=== PATIENT | male | born 1985 | race Caucasian/White ===

== ENCOUNTER 2020-01-09 05:52 | Emergency (ER) | payer SELFPAY ==
[~2020-01-09] VITALS: Ht 180 cm; Wt 104.0 kg
[2020-01-09 06:34] VITALS: BP 130/92
[2020-01-09] MEDS ORDERED: RT-ALBUINH IH ×2 (06:37→06:56)
--- NOTE | 2020-01-09 06:37 | ED Cough/URI ---
General Chief Complaint: Cough/Cold/Flu Symptoms Stated Complaint: COUGH/SOB Nursing Triage Note: Pt presents with a cough that has progressed over the past week. Pt denies any fever at home Sepsis Screen: No Definite Risk Source: patient Exam Limitations: no limitations History of Present Illness Date Seen by Provider: Jan 09, 2020 Time Seen by Provider: 06:00 Initial Comments Presents with 5 days of nasal congestion and cough. Denies fever or chills. NO significant PMHx, denies asthma or smoking. No concern of Covid exposure or recent travel. Developing some soa w cough and noticed some wheezing the past couple days. Has had similar sx in the past w seasonal allergies and bronchitis. No sick contacts at home. No sick contacts at work. Allergies and Home Medications Allergies Coded Allergies: No Known Drug Allergies (Unverified , 01/09/20) Home Medications Albuterol Sulfate 1 Puff Puff, 2 PUFF IH Q4H 1 PUFF = 90 MCG Prescribed by: BONI FLORES on 01/09/20 0637 Patient Home Medication List Home Medication List Reviewed: Yes Review of Systems Review of Systems Constitutional: see HPI; No chills, No diaphoresis, No dizziness, No fever, No malaise, No weakness EENTM: see HPI, nose congestion; No throat pain, No throat swelling Respiratory: see HPI, cough; No dyspnea on exertion, No hemoptysis, No orthopnea, No phlegm; short of breath; No stridor; wheezing Cardiovascular: No chest pain, No palpitations Gastrointestinal: No abdominal pain, No loss of appetite, No vomiting Musculoskeletal: No back pain, No joint pain, No muscle pain Skin: No change in color, No rash Past Qwrcsji-Kgjixy-Ihkbrd Hx Past Med/Social Hx: Reviewed Nursing Past Med/Soc Hx Patient Social History Alcohol Use: Denies Use Recreational Drug Use: No Smoking Status: Never a Smoker 2nd Hand Smoke Exposure: No Recent Foreign Travel: No Contact w/Someone Who Travel: No Recent Infectious Disease Expo: No Recent Hopitalizations: No Physical Abuse: No Sexual Abuse: No Past Medical History Surgeries: Yes Appendectomy Respiratory: No Cardiac: No Neurological: No Genitourinary: No Gastrointestinal: No Musculoskeletal: No Endocrine: No HEENT: No Cancer: No Psychosocial: No Integumentary: No Blood Disorders: No Physical Exam Vital Signs - First Documented 01/09/20 05:52 Temp 37.3 Pulse 90 Resp 18 B/P (MAP) 148/92 (110) Pulse Ox 100 O2 Delivery Room Air Capillary Refill : Less Than 3 Seconds Height: '" Weight: lbs. oz. kg; 32.00 BMI Method: General Appearance: WD/WN, no apparent distress HEENT: normal ENT inspection Neck: non-tender, supple Respiratory: chest non-tender, no respiratory distress, no accessory muscle use; No decreased breath sounds, No accessory muscle use; rhonchi (scattered expiratory) Cardiovascular: regular rate, rhythm, no gallop Gastrointestinal: non tender, soft Neurologic/Psychiatric: normal mood/affect, oriented x 3 Skin: normal color, warm/dry Progress/Results/Core Measures Suspected Sepsis Recent Fever Within 48 Hours: No Infection Criteria Present: None New/Unexplained Altered Menta: No Sepsis Screen: No Definite Risk SIRS Temperature: Pulse: 90 Respiratory Rate: 18 Blood Pressure 148 /92 Mean: 110 Results/Orders Lab Results Laboratory Tests Test 01/09/20 06:09 Range/Units Group A Streptococcus Screen NEGATIVE NEGATIVE Micro Results Microbiology 01/09/20 Influenza Types A,B Antigen (ANTONIO) - Final, Complete My Orders Orders - BONI FLORES DO Influenza A And B Antigens (01/09/20 06:12) Rapid Strep A Screen (01/09/20 06:12) Vital Signs/I&O 01/09/20 05:52 Temp 37.3 Pulse 90 Resp 18 B/P (MAP) 148/92 (110) Pulse Ox 100 O2 Delivery Room Air Capillary Refill : Less Than 3 Seconds Blood Pressure Mean: 110 Progress Note : Progress Note Negative flu and strep. Swabbed for Covid. 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 Departure Impression Primary Impression: Bronchitis Disposition: 01 HOME, SELF-CARE Condition: Stable Departure-Patient Inst. Decision time for Depature: 06:34 Referrals: NO,LOCAL PHYSICIAN (PCP/Family) Primary Care Physician Patient Instructions: Acute Bronchitis, Adult (DC) Add. Discharge Instructions: You are advised to "self-quarantine" for the next 10 days. If you hear from the [facility] that your Covid-19 test was negative, you may return to work. All discharge instructions reviewed with patient and/or family. Voiced understanding. Scripts Albuterol Sulfate (PROAIR HFA) 1 Puff Puff 2 PUFF IH Q4H, #1 PUFF 1 PUFF = 90 MCG Prov: BONI FLORES DO 01/09/20 Albuterol Sulfate (PROAIR HFA) 1 Puff Puff 2 PUFF IH Q4H, #1 PUFF 1 PUFF = 90 MCG Prov: BONI FLORES DO 01/09/20 BONI FLORES DO Jan 09, 2020 06:37
== END 2020-01-09 06:46 | disposition home or self-care (01) ==
LOC: EDUNIT# 05:52 → ER FS 06:01
DX: J40 Bronchitis, not specified as acute or chronic (principal)
CPT/HCPCS: 36415; 87430; 87635; 87804

== ENCOUNTER → 2020-09-20 | Outpatient (CLI) | payer SELFPAY ==
[~2020-09-20] MED LIST: RT-ALBUINH IH
== END ==
LOC: LAB FS 09:30
PROVIDERS: ATTEND Orthopaedic Surgery
DX: Z01.812 Encounter for preprocedural laboratory examination (principal); Z20.828 Contact with and (suspected) exposure to other viral communicable diseases
CPT/HCPCS: 87635

== ENCOUNTER 2021-09-22 12:21 | Emergency (ER) | payer SELFPAY ==
--- OUTSIDE RECORDS SUMMARY | 2021-09-22 12:34 | XMS REPORT | Clinical Summary ---
Author Author [facility] Organization [facility] Address Unknown Phone Unavailable Care Team Providers Care Thread Inspector Name Role Phone PCP Unavailable Allergies Not on File Medications Not on file Active Problems Not on file Social History Date Tobacco Use Types Packs/Day Years Used Never Assessed Sex Assigned at Date Recorded Not on file Last Filed Vital Signs Not on file Plan of Treatment Health Maintenance Due Date Last Done Comments Td/Tdap# 1987 COVID-19 Vaccine (1) 1992 Influenza Vaccine (#1) 2021 Pneumococcal Vaccine: Aged Out No longer eligib le based on patient's age to Pediatrics (0 to 5 Years) complete this topic and At-Risk Patients (6 to 64 Years) Results Not on filefrom Last 3 Months Advance Directives For more information, please contact: [phone] 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
[2021-09-22] MEDS ORDERED: IBUPROFEN TABLET 200 MG TAB PO STA (12:42)
--- NOTE | 2021-09-22 12:42 | ED Cough/URI ---
General Chief Complaint: COVID19 Suspect/Confirmed Stated Complaint: COVID+; SOB; FATIGUE; HEADACHE History of Present Illness Date Seen by Provider: Sep 22, 2021 Time Seen by Provider: 12:37 Initial Comments 36-year-old male presents with some generalized malaise, fatigue, headache, cough, shortness of breath. Patient tested positive for Covid 2 days ago. Patient is scheduled to get a Regeneron infusion next at [facility]. Patient denies any previous medical history. Allergies and Home Medications Allergies Coded Allergies: No Known Drug Allergies (Unverified , 01/09/20) Patient Home Medication List Home Medication List Reviewed: Yes Albuterol Sulfate (Proair Hfa) 1 Puff Puff, 2 PUFF IH Q4H Prescribed by: BONI FLORES on 01/09/20 0656 Albuterol Sulfate (Proair Hfa) 1 Puff Puff, 2 PUFF IH Q4H Prescribed by: BONI FLORES on 01/09/20 0656 Review of Systems Review of Systems Constitutional: chills, fever, malaise EENTM: see HPI Respiratory: cough, short of breath Cardiovascular: No chest pain, No palpitations Gastrointestinal: No abdominal pain, No diarrhea, No vomiting Genitourinary: no symptoms reported Musculoskeletal: see HPI Skin: no symptoms reported Psychiatric/Neurological: No Symptoms Reported Hematologic/Lymphatic: No Symptoms Reported Past Rtkneab-Wqbrrr-Etwvma Hx Past Medical History Surgeries: Yes Appendectomy Respiratory: No Cardiac: No Neurological: No Genitourinary: No Gastrointestinal: No Musculoskeletal: No Endocrine: No HEENT: No Cancer: No Psychosocial: No Integumentary: No Blood Disorders: No Physical Exam Vital Signs - First Documented 09/22/21 09/22/21 12:21 12:36 Temp 37.0 Pulse 84 Resp 20 B/P (MAP) 131/70 (90) Pulse Ox 93 O2 Delivery Room Air Capillary Refill : Height: '" Weight: lbs. oz. kg; 32.00 BMI Method: General Appearance: WD/WN, no apparent distress Neck: full range of motion Respiratory: no respiratory distress, no accessory muscle use Cardiovascular: normal peripheral pulses, regular rate, rhythm Gastrointestinal: non tender, soft Extremities: normal range of motion Neurologic/Psychiatric: alert, normal mood/affect, oriented x 3 Skin: diaphoresis Focused Exam Lactate Level 12/10/21 12:45: Lactic Acid Level 1.38 Lactic Acid Level Laboratory Tests Test 09/22/21 12:45 Lactic Acid Level 1.38 MMOL/L (0.50-2.00) Progress/Results/Core Measures Suspected Sepsis SIRS Temperature: Pulse: Respiratory Rate: Laboratory Tests 09/22/21 12:49: White Blood Count 7.5 Blood Pressure / Mean: 09/22/21 12:45: Lactic Acid Level 1.38 Laboratory Tests 09/22/21 12:45: Creatinine 0.63, INR Comment 1.1, Total Bilirubin 0.8 09/22/21 12:49: Platelet Count 196 Results/Orders Lab Results Laboratory Tests Test 09/22/21 12:45 09/22/21 12:49 Range/Units Prothrombin Time 14.7 12.2-14.7 SEC INR Comment 1.1 0.8-1.4 Activated Partial Thromboplast Time 36 H 24-35 SEC Sodium Level 137 135-145 MMOL/L Potassium Level 3.4 L 3.6-5.0 MMOL/L Chloride Level 99 98-107 MMOL/L Carbon Dioxide Level 28 21-32 MMOL/L Anion Gap 10 5-14 MMOL/L Blood Urea Nitrogen 15 7-18 MG/DL Creatinine 0.63 0.60-1.30 MG/DL Estimat Glomerular Filtration Rate 146 BUN/Creatinine Ratio 24 Glucose Level 188 H 70-105 MG/DL Lactic Acid Level 1.38 0.50-2.00 MMOL/L Calcium Level 9.3 8.5-10.1 MG/DL Corrected Calcium 9.1 8.5-10.1 MG/DL Total Bilirubin 0.8 0.1-1.0 MG/DL Aspartate Amino Transf (AST/SGOT) 28 5-34 U/L Alanine Aminotransferase (ALT/SGPT) 24 0-55 U/L Alkaline Phosphatase 45 40-136 U/L Troponin I < 0.30 <0.30 NG/ML C-Reactive Protein 24.64 H <0.50 MG/DL Total Protein 7.0 6.4-8.2 GM/DL Albumin 4.2 3.2-4.5 GM/DL White Blood Count 7.5 4.3-11.0 10^3/uL Red Blood Count 4.42 4.30-5.52 10^6/uL Hemoglobin 13.1 L 13.3-17.7 g/dL Hematocrit 38 L 40-54 % Mean Corpuscular Volume 86 80-99 fL Mean Corpuscular Hemoglobin 30 25-34 pg Mean Corpuscular Hemoglobin Concent 35 32-36 g/dL Red Cell Distribution Width 12.4 10.0-14.5 % Platelet Count 196 130-400 10^3/uL Mean Platelet Volume 9.7 9.0-12.2 fL Immature Granulocyte % (Auto) 0 % Neutrophils (%) (Auto) 89 H 42-75 % Lymphocytes (%) (Auto) 4 L 12-44 % Monocytes (%) (Auto) 7 0-12 % Eosinophils (%) (Auto) 0 0-10 % Basophils (%) (Auto) 0 0-10 % Neutrophils # (Auto) 6.6 1.8-7.8 X 10^3 Lymphocytes # (Auto) 0.3 L 1.0-4.0 X 10^3 Monocytes # (Auto) 0.5 0.0-1.0 X 10^3 Eosinophils # (Auto) 0.0 0.0-0.3 10^3/uL Basophils # (Auto) 0.0 0.0-0.1 10^3/uL Immature Granulocyte # (Auto) 0.0 0.0-0.1 10^3/uL Neutrophils % (Manual) 60 % Lymphocytes % (Manual) 3 % Monocytes % (Manual) 6 % Eosinophils % (Manual) 0 % Basophils % (Manual) 1 % Metamyelocytes % 0 % Myelocytes % 1 % Band Neutrophils 29 % My Orders Orders - BROOK MACIAS DO Vital Signs: Every 4 Hours (Or (09/22/21 12:42) Ed Iv/Invasive Line Start (09/22/21 12:42) Cbc With Automated Diff (09/22/21 12:42) Comprehensive Metabolic Panel (09/22/21 12:42) LDH (09/22/21 12:42) Crp Fs (09/22/21 12:42) Troponin I Fs (09/22/21 12:42) Lactic Acid Analyzer (09/22/21 12:42) Protime With Inr (09/22/21 12:42) Partial Thromboplastin Time (09/22/21 12:42) Ns Iv 1000 Ml (Sodium Chloride 0.9%) (09/22/21 12:45) Chest 1 View Ap/Pa Only (09/22/21 12:42) Ibuprofen Tablet (Motrin Tablet) (09/22/21 12:42) Manual Differential (09/22/21 12:49) Vital Signs/I&O 09/22/21 09/22/21 12:21 12:36 Temp 37.0 Pulse 84 Resp 20 B/P (MAP) 131/70 (90) Pulse Ox 93 O2 Delivery Room Air Room Air Capillary Refill : Progress Note : Progress Note Patient with right-sided pneumonia with known Covid positive. This is an atypical pneumonia from what typically see with Covid. Due to this I will start him on Pulmicort along with a Z-Rigoberto. I also recommended he take an aspirin daily along with some zinc other multivitamins. Patient's O2 saturations were in the 94-96 percentile. He should continue to check his home oxygen and return as needed. Patient has Regeneron scheduled for 09/28/21. I will also fax his information to [employer] to see if they can get it in the next day or 2 in the shot form. Patient was stable and discharged home Diagnostic Imaging Diagonstic Imaging: Xray Plain Films/CT/US/NM/MRI: chest Comments Date of Exam:09/22/21 CHEST 1 VIEW AP/PA ONLY INDICATION: Dyspnea and COVID infection Portable AP upright view of the chest is obtained. There is no previous study for comparison. There is extensive airspace disease throughout the right lung. There is also volume loss in the right lung. Left lung appears to be clear apart from probable slight left basilar atelectasis. No pneumothorax is seen. IMPRESSION: Diffuse airspace disease in right lung would be compatible with pneumonia. Left lung appears generally clear. Departure Impression Primary Impression: Right lower lobe pneumonia Qualified Codes: J18.9 - Pneumonia, unspecified organism Additional Impression: 2019 novel coronavirus detected Disposition: 01 HOME, SELF-CARE Condition: Stable Departure-Patient Inst. Referrals: FAUSTO SORIA DO (PCP/Family) Primary Care Physician Patient Instructions: COVID-19 ED, REGEN-COV (casirivimab and imdevimab) FDA Fact Sheet Add. Discharge Instructions: Follow-up with your primary care provider as needed, return to the ER with worsening shortness of breath Please continue to check your oxygen Ibuprofen as needed for pain and fever Drink plenty of fluids [facility] for a Regeneron shot possibly sooner than the 16 All discharge instructions reviewed with patient and/or family. Voiced understanding. Scripts Azithromycin (Azithromycin) 250 Mg Tablet 250 MG PO UD, #6 TAB TAKE 2 TABLETS ON DAY ONE THEN TAKE 1 TABLET DAILY FOR FOUR MORE DAYS Prov: BROOK MACIAS DO 09/22/21 Budesonide (Pulmicort Flexhaler) 180 Mcg Aer.pow.ba 180 MCG IH BID, #1 EA Prov: BROOK MACIAS DO 09/22/21 BROOK MACIAS DO Sep 22, 2021 12:41
[2021-09-22] MEDS ORDERED: NS IV 1000 ML 1,000 ML IV SCH (12:45)
[2021-09-22 12:59] LABS: HEMATOCRIT 38 % (40-54); HEMOGLOBIN 13.1 g/dL (13.3-17.7); MEAN CORPUSCULAR HEMOGLOBIN 30 pg (25-34); MEAN CORPUSCULAR HGB CONC 35 g/dL (32-36); MEAN CORPUSCULAR VOLUME 86 fL (80-99); MEAN PLATELET VOLUME 9.7 fL (9.0-12.2); NEUTROPHILS % (AUTO) 89 % (42-75); PLATELET COUNT 196 10^3/uL (130-400); WHITE BLOOD COUNT 7.5 10^3/uL (4.3-11.0)
--- NOTE | 2021-09-22 12:59 | Diagnostic Imaging Report ---
INDICATION: Dyspnea and COVID infection Portable AP upright view of the chest is obtained. There is no previous study for comparison. There is extensive airspace disease throughout the right lung. There is also volume loss in the right lung. Left lung appears to be clear apart from probable slight left basilar atelectasis. No pneumothorax is seen. IMPRESSION: Diffuse airspace disease in right lung would be compatible with pneumonia. Left lung appears generally clear. Dictated by: Dictated on workstation # [id number]
[2021-09-22 13:00] LABS: BASOPHILS % (AUTO) 0 % (0-10); EOSINOPHILS % (AUTO) 0 % (0-10); LYMPHOCYTES # (AUTO) 0.3 X 10^3 (1.0-4.0); LYMPHOCYTES % (AUTO) 4 % (12-44); MONOCYTES # (AUTO) 0.5 X 10^3 (0.0-1.0); MONOCYTES % (AUTO) 7 % (0-12); NEUTROPHILS # (AUTO) 6.6 X 10^3 (1.8-7.8)
[2021-09-22 13:10] LABS: INR 1.1 (0.8-1.4); PROTHROMBIN TIME PATIENT 14.7 SEC (12.2-14.7)
[2021-09-22 13:25] LABS: ALANINE AMINOTRANSFERASE 24 U/L (0-55); ALKALINE PHOSPHATASE 45 U/L (40-136); BILIRUBIN,TOTAL 0.8 MG/DL (0.1-1.0); BUN/CREATININE RATIO 24; CALCIUM 9.3 MG/DL (8.5-10.1); CARBON DIOXIDE 28 MMOL/L (21-32); CHLORIDE 99 MMOL/L (98-107); CREATININE SERUM 0.63 MG/DL (0.60-1.30); GFR ESTIMATED 146; GLUCOSE 188 MG/DL (70-105); POTASSIUM 3.4 MMOL/L (3.6-5.0); SODIUM 137 MMOL/L (135-145)
[2021-09-22 13:26] LABS: ALBUMIN 4.2 GM/DL (3.2-4.5)
[2021-09-22 13:27] LABS: BAND NEUTROPHILS 29 %; BASOPHILS % (MANUAL) 1 %; EOSINOPHILS % (MANUAL) 0 %; LYMPHOCYTES % (MANUAL) 3 %; METAMYELOCYTES % 0 %; MONOCYTES % (MANUAL) 6 %; MYELOCYTES % 1 %; NEUTROPHILS % (MANUAL) 60 %
[2021-09-22] MEDS ORDERED: AZIT250T12 PO (13:45)
[2021-09-22] MEDS ORDERED: BUDE180A IH (13:45)
[2021-09-22 14:53] VITALS: BP 157/78
== END 2021-09-22 14:30 | disposition home or self-care (01) ==
LOC: EDUNIT# 12:21 → ER FS 12:25
DX: U07.1 COVID-19 (principal); J18.1 Lobar pneumonia, unspecified organism
CPT/HCPCS: 36415; 71045; 80053; 83605; 83615; 84484; 85007; 85027; 85610; 85730; 86141

== ENCOUNTER 2022-07-29 20:24 | Emergency (ER) | payer SELFPAY ==
[~2022-07-29] VITALS: Ht 175 cm; Wt 90.7 kg
[~2022-07-29 20:24] MED LIST changes: +AZIT250T12 PO; +BUDE180A IH
[2022-07-29] MEDS ORDERED: FLUORESCEIN (FLUOR-I-STRIPS) 1 MG STRP OP ONE (20:45)
[2022-07-29] MEDS ORDERED: TETRACAINE 0.5% OPHTH SOLN 4 ML BTL (SINGLE DOSE ONLY) OP ONE (20:45)
--- NOTE | 2022-07-29 20:47 | ED EENT ---
History of Present Illness General Stated Complaint: OBJECT IN EYE History of Present Illness Date Seen by Provider: Jul 29, 2022 Time Seen by Provider: 20:42 Initial Comments 36-year-old male here for something in his right eye. He was working under his car and something got in it. He did use a bottle wash at home but did scratch at it earlier. He is red and irritated. Feels like there is something on the medial side. Allergies and Home Medications Allergies Coded Allergies: No Known Drug Allergies (Unverified , 01/09/20) Patient Home Medication List Home Medication List Reviewed: Yes Albuterol Sulfate (Proair Hfa) 1 Puff Puff, 2 PUFF IH Q4H Prescribed by: BONI FLORES on 01/09/20 0656 Albuterol Sulfate (Proair Hfa) 1 Puff Puff, 2 PUFF IH Q4H Prescribed by: BONI FLORES on 01/09/20 0656 Azithromycin (Azithromycin) 250 Mg Tablet, 250 MG PO UD Prescribed by: BROOK MACIAS on 09/22/21 1345 Budesonide (Pulmicort Flexhaler) 180 Mcg Aer.pow.ba, 180 MCG IH BID Prescribed by: BROOK MACIAS on 09/22/21 1345 Review of Systems Review of Systems Constitutional: see HPI Past Ndrygja-Usqtmr-Zzoxvt Hx Patient Social History Tobacco Use?: No Immunizations Up To Date First/Initial COVID19 Vaccinat: Not currently vaccinated Past Medical History Surgeries: Yes Appendectomy Respiratory: No Cardiac: No Neurological: No Genitourinary: No Gastrointestinal: No Musculoskeletal: No Endocrine: No HEENT: No Cancer: No Psychosocial: No Integumentary: No Blood Disorders: No Visual Acuity : Eye Location: Right Physical Exam Vital Signs Vital Signs - First Documented 07/29/22 20:43 Temp 36.9 Pulse 74 Resp 20 B/P (MAP) 139/84 (102) Pulse Ox 99 O2 Delivery Room Air Height, Weight, BMI Height: '" Weight: lbs. oz. kg; 32.00 BMI Method: General Appearance: WD/WN, no apparent distress Eyes: right eye conjunctival inflammation, right eye lid inflammation Neurologic/Psychiatric: alert, normal mood/affect Skin: normal color, warm/dry Procedures/Interventions Eye : Location: right eye Anesthesia (gtts): Tetracaine Progress/Procedure Conclusion Fluorescein put in. Looked at under black light. Uptake noted. No abrasions on the cornea. Conjunctive a looks clear of any injury. Progress/Results/Core Measures Results/Orders My Orders Orders - CARIN DELEON MD Fluorescein Strips (Spgpr-K-Nogihu) (07/29/22 20:45) Tetracaine 0.5% Ophth Kezia Sdv (Tetracai (07/29/22 20:45) Medications Given in ED Current Medications Medications Dose Ordered Sig/Alla Route Start Time Stop Time Status Last Admin Dose Admin Fluorescein Sodium ONCE ONCE OP 07/29/22 20:45 07/29/22 20:50 DC 07/29/22 21:00 1 MG Tetracaine HCl 1 OR 2 DROPS INTO AFFEC... ONCE ONCE OP 07/29/22 20:45 07/29/22 20:50 DC 07/29/22 21:00 2 ML Vital Signs/I&O 07/29/22 07/29/22 20:43 21:15 Temp 36.9 36.9 Pulse 74 74 Resp 20 20 B/P (MAP) 139/84 (102) 139/84 Pulse Ox 99 99 O2 Delivery Room Air Room Air Progress Progress Note : Time: 21:06 Progress Note We will plan to discharge patient home. Antibiotics not needed. 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 Departure Impression Primary Impression: Foreign body in eye region Additional Impression: Conjunctivitis Qualified Codes: H10.31 - Unspecified acute conjunctivitis, right eye Disposition: 01 HOME, SELF-CARE Condition: Stable Departure-Patient Inst. Decision time for Depature: 21:08 Referrals: FAUSTO SORIA DO (PCP/Family) Primary Care Physician Add. 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 Keep your eye lubricated. If symptoms do not resolve follow-up with eye doctor CARIN DELEON MD Jul 29, 2022 20:46
[2022-07-29 21:15] VITALS: BP 139/84
== END 2022-07-29 21:15 | disposition home or self-care (01) ==
LOC: EDUNIT# 20:24 → ER FS 20:27
DX: T15.91XA Foreign body on external eye, part unspecified, right eye, initial encounter (principal); H10.9 Unspecified conjunctivitis; Z28.310 Unvaccinated for COVID-19; W45.8XXA Other foreign body or object entering through skin, initial encounter; Y92.59 Other trade areas as the place of occurrence of the external cause; Y99.0 Civilian activity done for income or pay
CPT/HCPCS: 65205; 65222